=== PATIENT | female | born 1940 | race Caucasian/White ===

== ENCOUNTER 2016-09-26 12:49 | Emergency (ER) | payer MEDICARE ==
[~2016-09-26] VITALS: Ht 165.1 cm; Wt 70.3 kg
[2016-09-26] MEDS ORDERED: ZOCOR40 MG PO (13:05)
[2016-09-26] MEDS ORDERED: JARDIANCE25 MG PO (13:05)
[2016-09-26] MEDS ORDERED: GLIPIZIDE5 MG PO (13:06)
[2016-09-26] MEDS ORDERED: PRINIVIL10 MG PO (13:06)
[2016-09-26] MEDS ORDERED: GLUCOPHAGE500 MG PO (13:07)
[2016-09-26] MEDS ORDERED: SYNTHROID75 MCG PO (13:07)
== END 2016-09-26 14:04 | disposition short-term general hospital (02) ==
LOC: ER 12:49
DX: M54.5 Low back pain (principal); E11.9 Type 2 diabetes mellitus without complications; Z87.442 Personal history of urinary calculi